=== PATIENT | male | born 1950 | race African-American/Black ===

== ENCOUNTER 2017-07-09 11:04 | Emergency (ER) | payer MEDICARE, MEDICAID ==
[~2017-07-09] VITALS: Ht 180.3 cm; Wt 128.0 kg
[2017-07-09 15:27] VITALS: BP 137/93
== END 2017-07-09 17:16 | disposition left against medical advice (07) ==
LOC: ER 11:04
DX: M54.5 Low back pain (principal); J44.9 Chronic obstructive pulmonary disease, unspecified; Z86.711 Personal history of pulmonary embolism; Z99.81 Dependence on supplemental oxygen; Z87.891 Personal history of nicotine dependence
CPT/HCPCS: 99281